=== PATIENT | female | born 1980 | race Two or more races ===

== ENCOUNTER 2023-12-31 08:25 | Emergency (ER) | payer MEDICAID ==
[2023-12-31 09:11] LABS: RAPID STREP SCREEN POSITIVE (Negative)
--- NOTE | 2023-12-31 09:38 | ED Physician Documentation ---
PD HPI URI - Stated complaint Stated Complaint: NECK PX, SWOLLEN - Chief complaint Chief Complaint: Heent - History obtained from History obtained from: Patient, Other (Video facility designer service was used to obtain history and throughout exam as well as reviewing any information.) - Additional information Additional information: Patient is a 43-year-old female with no significant past medical history presenting for evaluation of a sore throat that has been present for 3 days. She has felt feverish but has no thermometer to check her temperature. Her last dose of ibuprofen was last night. She has been able to swallow but it does hurt. She is only tried cold liquids. No cough, chest pain, difficulty breathing, vomiting or diarrhea. Denies any known sick contacts. Review of Systems Constitutional: reports: Fever (Subjective) Nose: denies: Congestion Throat: reports: Sore throat Respiratory: denies: Cough GI: denies: Vomiting, Diarrhea PD PAST MEDICAL HISTORY - Past Medical History Past Medical History: No Cardiovascular: None Respiratory: None Neuro: None Endocrine/Autoimmune: None GI: None CONTOUR STITCHER: None : None HEENT: None Psych: None Musculoskeletal: None Derm: None - Past Surgical History Past Surgical History: No - Present Medications Home Medications: Ambulatory Orders Medication Instructions Recorded Confirmed Amoxicillin 1,000 mg PO DAILY 10 Days #20 cap 12/31/23 - Allergies Allergies/Adverse Reactions: Allergies Allergy/AdvReac Type Severity Reaction Status Date / Time No Known Drug Allergies Allergy Verified 12/31/23 08:42 - Social History Does the pt smoke?: No Smoking Status: Never smoker Does the pt drink ETOH?: No Does the pt have substance abuse?: No - Immunizations Immunizations are current?: Yes - POLST Patient has POLST: No PD ED PE NORMAL - General General: Alert and oriented X 3, No acute distress, Well developed/nourished - HEENT HEENT: Atraumatic, Moist mucous membranes, Other (Bilateral tonsillar enlargement, uvula is midline, no signs of peritonsillar abscess, no exudate, no trismus, No pooling of secretions) - Neck Neck: Supple, no meningeal sign - Cardiac Cardiac: RRR - Respiratory Respiratory: No respiratory distress, Clear bilaterally - Abdomen Abdomen: Soft, Non tender, Non distended - Derm Derm: Warm and dry - Neuro Neuro: Normal speech Results - Vitals Vitals: Vital Signs - 24 hr 12/31/23 12/31/23 08:44 09:44 Temperature 36.7 C Heart Rate 89 78 Respiratory 18 16 Rate Blood Pressure 120/74 122/84 H O2 Saturation 100 99 Oxygen O2 Source Room air - Labs Labs: Laboratory Tests 12/31/23 12/31/23 08:55 08:55 Nasal Adenovirus (PCR) NOT DETECTED Nasal B. parapertussis DNA (PCR) NOT DETECTED Nasal Coronavir 229E PCR NOT DETECTED Nasal Coronavir HKU1 PCR NOT DETECTED Nasal Coronavir NL63 PCR NOT DETECTED Nasal Coronavir OC43 PCR NOT DETECTED Nasal Enterovir/Rhinovir PCR NOT DETECTED Nasal Influenza B PCR NOT DETECTED Nasal Influenza A PCR NOT DETECTED Nasal Parainfluen 1 PCR NOT DETECTED Nasal Parainfluen 2 PCR NOT DETECTED Nasal Parainfluen 3 PCR NOT DETECTED Nasal Parainfluen 4 PCR NOT DETECTED Nasal RSV (PCR) NOT DETECTED Nasal B.pertussis DNA PCR NOT DETECTED Nasal C.pneumoniae (PCR) NOT DETECTED Naveed Human Metapneumo PCR NOT DETECTED Nasal M.pneumoniae (PCR) NOT DETECTED Nasal SARS-CoV-2 (PCR) NOT DETECTED Group A Strep Rapid POSITIVE H PD Medical Decision Making - ED course Complexity details: reviewed results, d/w patient ED course: Patient is a 43-year-old female presenting for evaluation of a sore throat for 3 days. On exam has no signs of deep space infection or peritonsillar abscess. As she is controlling her secretions with normal speech and no signs of airway compromise. Vital signs are stable. Rapid strep is positive. Respiratory swab was also obtained.Discussed plan for antibiotic treatment as well as continued supportive care with anti-inflammatories and hydration. Patient is counseled on treatment plan as well as concerning symptoms to return for. I did use video foreign language teacher services throughout ED encounter. Departure - Departure Disposition: 01 Home, Self Care Clinical Impression: Strep pharyngitis Condition: Stable Instructions: ED Strep Pharyngitis Conf Prescriptions: Amoxicillin 1,000 mg PO DAILY 10 Days #20 cap Print Language: Tamazight Comments: Your strep test is positive. I have sent a prescription to [facility]. Continue with acetaminophen or ibuprofen for pain and inflammation. You may find that warm liquids are more soothing than cold. Make sure you finish the antibiotics. Return to the ER with any worsening. Your COVID swab is pending. We will notify you if it is positive. Otherwise you can check your results later to see if you are positive for one of the other viruses that are tested such as RSV or flu. Forms: PCP List Discharge Date/Time: 12/31/23 09:45
[2023-12-31 09:46] VITALS: BP 122/84; O2SAT 99
[2023-12-31 09:49] LABS: B. PARAPERTUSSIS- RESP PCR PAN NOT DETECTED; B. PERTUSSIS- RESP PCR PANEL NOT DETECTED; C. PNEUMONIAE- RESP PCR PANEL NOT DETECTED; CORONAVIRUS 229E-RESP PCR NOT DETECTED; CORONAVIRUS HKU1-RESP PCR NOT DETECTED; CORONAVIRUS NL63-RESP PCR NOT DETECTED; CORONAVIRUS OC43-RESP PCR NOT DETECTED; HUMAN METAPNEUMOVIRUS NOT DETECTED; INFLUENZA A- RESP PCR PANEL NOT DETECTED; INFLUENZA B - RESP PCR PANEL NOT DETECTED; M. PNEUMONIAE- RESP PCR PANEL NOT DETECTED; PARAINFLUENZA VIRUS 1 NOT DETECTED; PARAINFLUENZA VIRUS 2 NOT DETECTED; PARAINFLUENZA VIRUS 3 NOT DETECTED; PARAINFLUENZA VIRUS 4 NOT DETECTED; RHINOVIRUS/ENTEROVIRUS NOT DETECTED; RSV- RESP PCR PANEL NOT DETECTED; SARS-CoV-2 -RESP PCR PANEL NOT DETECTED
== END 2023-12-31 09:45 | disposition home or self-care (01) ==
LOC: ED 08:25
DX: J02.0 Streptococcal pharyngitis (principal); Z11.52 Encounter for screening for COVID-19
CPT/HCPCS: 87430; 87633; 99283